=== PATIENT | male | born 1965 | race Caucasian/White ===

== ENCOUNTER 2018-11-13 16:00 | Emergency (ER) | payer OTHER ==
[2018-11-13 16:36] LABS: #Basophils 0.1 thou/uL (0.0-0.2); #Eosinphils 0.3 thou/uL (0.0-0.7); #Lymphocytes 1.9 thou/uL (1.20-3.40); #Monocytes 0.9 thou/uL (0.11-0.59); %Basophils 0.9 % (0.0-1.0); %Eosinophils 3.2 % (0.0-10.0); %Lymphocytes 20.4 % (21.0-51.0); %Monocytes 9.6 % (0.0-10.0); %Neutrophils 65.8 % (42.0-75.0); Hemoglobin 10.9 g/dL (14.0-18.0); Mean Corpuscular HGB CONC 31.7 g/dL (32.0-36.0); Mean Corpuscular Hemoglobin 27.6 pg (27.0-31.0); Mean Corpuscular Volume 87.2 fL (78.0-98.0); Mean Platelet Volume 7.8 fL (7.4-10.4); Platelet Count 276 thou/uL (130-400); RBC Distribution Width 13.8 % (11.5-14.5); Red Blood Cell (RBC) Count 3.96 mill/uL (4.70-6.10); White Blood Cell (WBC) Count 9.1 thou/uL (4.8-10.8)
[2018-11-13 16:43] LABS: INR-International Normal Ratio 2.9; Prothrombin Time 30.2 SEC (12.0-14.7)
[2018-11-13 16:44] LABS: PTT 47.9 SEC (22.9-36.1)
[2018-11-13] MEDS ORDERED: Morphine 4 MG/ML VIAL ONE (16:51)
[2018-11-13] MEDS ORDERED: hydrALAZINE 20 MG/ML VIAL ONE ×2 (16:52→20:09)
[2018-11-13] MEDS ORDERED: Ondansetron PF 4 MG/2 ML Vial ONE (16:52)
--- NOTE | 2018-11-13 17:00 | RAD ---
TWO VIEWS CHEST: Date: 11-13-18 Provided Clinical History: None. FINDINGS: No comparison. Heart size is upper limits of normal to mildly enlarged. Right subclavian cardiac paci ng device is noted with the tips overlying the expected locations of RA and RV. Prominence of pulmona ry vasculature. No focal consolidation, pleural fluid, or pneumothorax apparent. IMPRESSION: 1. Pulmonary vascular congestion. Correlate with concerns for congestive failure. POS: OFF
[2018-11-13 17:15] LABS: Albumin 2.8 g/dL (3.5-5.0)
[2018-11-13 17:16] LABS: Chloride 106 mmol/L (98-107); Potassium 3.5 mmol/L (3.5-5.1); Sodium 135 mmol/L (136-145)
[2018-11-13 17:17] LABS: Calcium 7.5 mg/dL (7.8-10.44); Globulin 2.3 g/dL (2.4-3.5); Glucose 143 mg/dL (70-105); Protein, Total 5.1 g/dL (6.0-8.3)
[2018-11-13 17:19] LABS: Anion Gap 11 mmol/L (10-20); Bilirubin, Total 0.2 mg/dL (0.2-1.2); Carbon Dioxide 22 mmol/L (22-29)
[2018-11-13 17:20] LABS: Alkaline Phosphatase 111 U/L (40-150); Calc. Creatinine Clearance 0 mL/min (70-130); Estimated GFR-MDRD 28
[2018-11-13 17:21] LABS: BUN (Urea Nitrogen) 32 mg/dL (8.4-25.7)
[2018-11-13 17:22] LABS: AST (SGOT) 15 U/L (5-34)
[2018-11-13 17:23] LABS: ALT (SGPT) 14 U/L (8-55); CK (CPK) 423 U/L (30-200); Lipase 34 U/L (8-78)
[2018-11-13 17:28] LABS: CKMB 14.8 ng/mL (0-6.6)
[2018-11-13] MEDS ORDERED: Furosemide 40 MG/4 ML VIAL ONE (18:16)
[2018-11-13 19:21] LABS: Bilirubin Negative (Negative); Blood, Urine Moderate (Negative); Clarity CLEAR (Clear); Glucose, Urine (Dipstick) 250 mg/dL (Negative); Leukocyte Small (Negative); Nitrite Negative (Negative); Protein, Urine (Dipstick) > or equal to 300 mg/dL (Neg-Trace); Specific Gravity, Urine 1.013 (1.002-1.036)
[2018-11-13 19:22] LABS: Bacteria/HPF None Seen HPF (None Seen); Hyaline Casts/LPF 0-3 HYALINE CAST LPF (0-3 Hyaline); Squamous Epithelial None Seen HPF (0-3)
[2018-11-13 19:24] LABS: Yeast-AUWi Flag 123.2 (0-25.0)
[2018-11-13 19:32] LABS: RBC/HPF 0-3 HPF (0-3); Yeast-All Forms None Seen HPF (None Seen)
[2018-11-13 22:20] LABS: Troponin I 0.214 ng/mL (< 0.028)
== END 2018-11-13 22:09 | disposition short-term general hospital (02) ==
LOC: ERS 16:00
DX: I13.0 Hypertensive heart and chronic kidney disease with heart failure and stage 1 through stage 4 chronic kidney disease, or unspecified chronic kidney disease (principal); I50.9 Heart failure, unspecified; N18.3 Chronic kidney disease, stage 3 (moderate); R79.89 Other specified abnormal findings of blood chemistry; I25.10 Atherosclerotic heart disease of native coronary artery without angina pectoris; I25.2 Old myocardial infarction; I48.91 Unspecified atrial fibrillation; K21.9 Gastro-esophageal reflux disease without esophagitis; F32.9 Major depressive disorder, single episode, unspecified; E11.22 Type 2 diabetes mellitus with diabetic chronic kidney disease; Z79.4 Long term (current) use of insulin; Z79.01 Long term (current) use of anticoagulants; Z79.891 Long term (current) use of opiate analgesic; Z79.899 Other long term (current) drug therapy
CPT/HCPCS: 36415; 71046; 80053; 81003; 81015; 82550; 82553; 83605; 83690; 83880; 84484; 85025; 85610; 85730; 93005; 94760; 96374; 96375; 96376; J0360; J1940; J2270; J2405

== ENCOUNTER 2019-01-20 10:21 | Inpatient (IN) | payer OTHER ==
[2019-01-20] MEDS ORDERED: Morphine 4 MG/ML VIAL ONE (10:58)
[2019-01-20 11:13] LABS: #Basophils 0.1 thou/uL (0.0-0.2); #Eosinphils 0.3 thou/uL (0.0-0.7); #Lymphocytes 2.1 thou/uL (1.20-3.40); #Monocytes 0.7 thou/uL (0.11-0.59); #Neutrophils 5.2 thou/uL (1.40-6.50); %Basophils 0.6 % (0.0-1.0); %Eosinophils 3.5 % (0.0-10.0); %Lymphocytes 24.6 % (21.0-51.0); %Monocytes 8.6 % (0.0-10.0); %Neutrophils 62.7 % (42.0-75.0); Hemoglobin 11.5 g/dL (14.0-18.0); Mean Corpuscular HGB CONC 32.4 g/dL (32.0-36.0); Mean Corpuscular Hemoglobin 27.1 pg (27.0-31.0); Mean Corpuscular Volume 83.7 fL (78.0-98.0); Mean Platelet Volume 8.3 fL (7.4-10.4); Platelet Count 259 thou/uL (130-400); RBC Distribution Width 14.2 % (11.5-14.5); Red Blood Cell (RBC) Count 4.24 mill/uL (4.70-6.10); White Blood Cell (WBC) Count 8.3 thou/uL (4.8-10.8)
[2019-01-20 11:27] LABS: ALT (SGPT) 13 U/L (8-55); AST (SGOT) 16 U/L (5-34); Albumin 2.9 g/dL (3.5-5.0); Alkaline Phosphatase 92 U/L (40-150); Anion Gap 15 mmol/L (10-20); BUN (Urea Nitrogen) 46 mg/dL (8.4-25.7); Bilirubin, Total 0.3 mg/dL (0.2-1.2); CK (CPK) 427 U/L (30-200); Calc. Creatinine Clearance 0 mL/min (70-130); Calcium 7.7 mg/dL (7.8-10.44); Carbon Dioxide 22 mmol/L (22-29); Chloride 101 mmol/L (98-107); Estimated GFR-MDRD 19; Glucose 124 mg/dL (70-105); Lipase 15 U/L (8-78); Protein, Total 5.9 g/dL (6.0-8.3); Sodium 135 mmol/L (136-145)
--- NOTE | 2019-01-20 11:28 | RAD ---
RADIOGRAPH CHEST 1 VIEW: DATE: 01/20/2019 HISTORY: 53-year-old male with acute chest pain FINDINGS: Generator 4 pacemaker obscures the right midlung zone. Dual pacemaker leads right subclavian path wit h lead tips overlying the expected locations of right atrial appendage and right ventricle. There are no airspace densities, pulmonary edema, pneumothorax, or cardiomegaly. The lateral costophrenic a ngles are sharp. IMPRESSION: 1. No acute cardiopulmonary findings. 2. Right-sided transvenous permanent pacemaker.
[2019-01-20 11:51] LABS: CKMB 14.6 ng/mL (0-6.6)
[2019-01-20] MEDS ORDERED: cloNIDine 0.1 MG TAB ONE (12:02)
[2019-01-20] MEDS ORDERED: ISOVUE-370 76%-LOCM 1 ML ONE (12:32)
[2019-01-20] MEDS ORDERED: Heparin 25,000 units/D5W 500 ML IV SCH (13:15)
[2019-01-20] MEDS ORDERED: Heparin 10,000 UNITS/ 10 ML VIAL SLOW IVP SCH (13:15)
[2019-01-20] MEDS ORDERED: hydrALAZINE 20 MG/ML VIAL ONE (13:18)
[2019-01-20 13:34] LABS: INR-International Normal Ratio 1.1; PTT 29.9 SEC (22.9-36.1); Prothrombin Time 14.2 SEC (12.0-14.7)
[2019-01-20] MEDS ORDERED: Heparin 25,000 units/D5W 0 ML ONE (13:51)
[2019-01-20] MEDS ORDERED: Ondansetron ODT 4 MG TAB SL PRN (14:57)
[2019-01-20] MEDS ORDERED: Ondansetron PF 4 MG/2 ML Vial IVP PRN ×2 (14:57→15:05)
[2019-01-20] MEDS ORDERED: Acetaminophen 325 MG TAB PO PRN ×2 (14:57→15:05)
[2019-01-20] MEDS ORDERED: HYDROcodone/Acetaminophen 5/325 mg Tablet PO PRN ×2 (14:57)
[2019-01-20] MEDS ORDERED: HumaLOG 300 UNITS/3 ML VIAL SC PRN (15:05)
[2019-01-20] MEDS ORDERED: Ondansetron ODT 4 MG TAB PO PRN (15:05)
[2019-01-20] MEDS ORDERED: Dextrose 5% in Water 1,000 ML IV PRN (15:05)
[2019-01-20] MEDS ORDERED: Labetalol HCl 100 MG/20 ML VIAL SLOW IVP PRN (15:05)
[2019-01-20] MEDS ORDERED: Dextrose 50% Abboject 50 ML SYRINGE SLOW IVP PRN (15:05)
[2019-01-20 15:27] LABS: Troponin I 0.161 ng/mL (< 0.028)
--- NOTE | 2019-01-20 16:40 | CT ---
Exam: Head CT without contrast HISTORY: Stroke alert. Unknown time of onset. Last seen normal this morning in the ED. Left-sided wea kness. Slurred speech. COMPARISON: none FINDINGS: Hemorrhage: No intraparenchymal hemorrhage or extra-axial hematoma. Brain parenchyma: Cortical lan-white matter differentiation is preserved. No mass effect or midline shift. Basilar cisterns are patent.There is malacic change involving the anterior right rodriguez radiata due to remote insult. There is malacic change involving the right caudate nucleus. Hypodensit ies in the right frontal subcortical white matter and along the midportion of the right centrum semiovale are likely due to chronic small vessel ischemic changes. Ventricular system: Ventricles and sulci are patent and symmetric. Calvarium: Intact. Sinuses and mastoid air cells: Adequate aeration. IMPRESSION: No acute intracranial process. Results of study discussed with Dr. Jimenez 01/20/2019 at 4:36 PM Code CR
[2019-01-20 17:11] LABS: INR-International Normal Ratio 1.1; Prothrombin Time 14.6 SEC (12.0-14.7)
[2019-01-20 17:12] LABS: PTT 61.1 SEC (22.9-36.1)
[2019-01-20 17:32] LABS: Troponin I 0.165 ng/mL (< 0.028)
--- NOTE | 2019-01-20 17:37 | CT ---
Exam: CT angiogram of the thoracic aorta CT angiogram of the abdominal aorta HISTORY: Chest pain. Weakness. Evaluate for dissection TECHNIQUE: CT angiogram of the thoracic and abdominal aorta performed in the axial plane. Three-dimen sional reformatted images are submitted FINDINGS: Chest CT: No mediastinal mass, lymphadenopathy or hematoma. There are nonspecific mediastinal lymph n odes. Heart size is upper normal. No significant pericardial fluid. Trachea and central bronchi are patent. Patchy groundglass opacities throughout the lung parenchyma. Dependent atelectatic changes. No significant pleural fluid. No pneumothorax .. Abdomen CT: Liver, spleen, pancreas have appropriate arterial phase enhancement. There is nodularity involving the left and right adrenal gland, incompletely evaluated. Surgically absent right kidney. Appropriate enhancement of the left kidney. Exophytic cyst emanating from the left renal cortex measuring 4.6 x 5.3 cm. Attenuation coefficient suggests a possibly complex lesion. Indeterminate characterization. No gastrohepatic, retrocrural or periportal lymphadenopathy No gastric mass, nephropathy, free air or free fluid. Limited evaluation of the alimentary canal by the lack of oral contrast. No evidence of bowel obstruc tion. CT ANGIOGRAM: The root of the aorta, ascending thoracic aorta, aortic arch, descending thoracic aorta and the entire abdominal aorta have a normal course and caliber. No aneurysm. No dissection. No periaortic fat stranding. Celiac artery origin, superior mesenteric artery origin, left renal artery and inferior mesenteric artery are patent. There does appear to be short segment severe stenosis involving the proximal inferior mesenteric artery. IMPRESSION: 1. No evidence of aneurysm or dissection 2. Nonspecific, nonenlarged mediastinal lymph nodes 3. Patchy groundglass opacities which may represent edema. 4. Indeterminate bilateral adrenal nodules line 5. Indeterminate right renal cyst emanating from the upper pole. Confirmation with nonemergent renal ultrasound. Results of study discussed with Dr. Jimenez 01/20/2019 at 5:36 PM CR Transcribed Date/Time: 01/20/2019 5:45 PM
--- NOTE | 2019-01-20 17:43 | CT ---
Exam: CT angiogram of the head CT angiogram of the neck Postcontrast head CT Postcontrast soft tissue neck CT HISTORY: Stroke. Weakness. TECHNIQUE: CT angiogram of the head and neck are performed in the axial plane. Three-dimensional refo rmatted images are submitted for dictation FINDINGS: Postcontrast head CT: No pathologic enhancement of the brain parenchyma. Chronic changes as noted on a recent noncontrast head CT involving the right cerebrum. Cortical lan-white matter differentiation is preserved Postcontrast soft tissue neck CT: Bilateral orbits are unremarkable. Aerodigestive tract is patent. M idline fatty raphae of the tongue is preserved Symmetric attenuation of the parotid and submandibular glands. Symmetric attenuation of cleidomastoid muscles No evidence of lymphadenopathy by size criteria. Central spinal canal is patent. Vertebral body height is maintained. There is no fracture. CT ANGIOGRAM: Right carotid: Right carotid artery origin, common carotid artery, carotid bifurcation and internal c arotid artery have appropriate enhancement and luminal diameter. Minimal atherosclerosis of the carotid bifurcation Left carotid: The left common carotid artery, carotid bifurcation and internal carotid artery of appr opriate enhancement and luminal diameter. Minimal sclerosis in the left carotid bifurcation Bilateral cervical vertebral arteries are patent. Bilateral subclavian arteries are patent. CT angiogram of the head: Distal cervical and intracranial internal carotid arteries have appropriate enhancement and luminal diameter. There is atherosclerosis involving bilateral cavernous and paraclinoid segments without evidence of high-grade stenosis. Anterior circulation: Symmetric enhancement and luminal diameter the A1 and M1 segments. Proximal A2 segment and proximal MCA branches of appropriate enhancement and luminal diameter. Posterior circulation: Bilateral vertebral arteries supply normal caliber basilar artery. Left PICA a rtery origin is unremarkable. Limited evaluation of the right PICA artery origin. Bilateral P1 segments have appropriate enhancement and luminal diameter. IMPRESSION: 1. No evidence of significant stenosis of either cervical carotid artery, based on NASCET criteria 2. No significant stenosis of the level of the [place] 3. Results of the study discussed with Dr. Jimenez 01/20/2019 at 5:42 PM Code CR Transcribed Date/Time: 01/20/2019 5:49 PM
--- NOTE | 2019-01-20 18:14 | PDOC.EVN ---
Event Note - Event Note Event Note: Called to see patient for code green. Patient had worsening weakness in the left upper, and lower extremity. he also noted some chest discomfort as well. A stat CT scan of the brain was done which was negative. There was concern for dissection due to his initial elevated blood pressure, above 200 systolic on admission, and the Neurological findings. The patient was informed about the risks for renal failure with the use of IV contrast. He agreed to the risk. A CTA of the neck, and CT dissection protocol, were negative. Will give IV fluids for contrast overnight. Will also consult Nephrology as well.
[2019-01-20] MEDS: Nitroglycerin 2% Ointment 1 INCH/1 GM Packet TOP SCH ×2 (18:46→22:20)
[2019-01-20] MEDS: Sodium Chloride 0.9% 1,000 ML IV SCH (18:46)
[2019-01-20] MEDS: hydrALAZINE 20 MG/ML VIAL SLOW IVP PRN (18:53)
--- NOTE | 2019-01-20 19:11 | CON ---
DATE OF CONSULTATION: 01/20/2019 HISTORY OF PRESENT ILLNESS: The patient is an unfortunate 53-year-old gentleman who presents with chest discomfort and has developed left-sided paralysis. The patient has a previous history of apparent coronary artery disease. He also suffered a cerebrovascular accident. The patient presented with left-sided chest discomfort. He states a few months ago, he underwent a cardiac catheterization. He was found to have apparently no evidence of progressive coronary artery disease. The patient presents once again with chest pain and elevated blood pressure. The patient while being here in the hospital suddenly developed acute paralysis of his left side. The patient continues to report the same continuous chest pain that began this morning. PAST MEDICAL HISTORY: Significant for; 1. Coronary artery disease. 2. Congestive heart failure. 3. Hypertension. 4. Chronic renal insufficiency. 5. He has a history of an electronic pacemaker placed. PAST SURGICAL HISTORY: He has had a kidney removed, back surgery, and knee surgery. SOCIAL HISTORY: Nonsmoker. FAMILY HISTORY: Positive family history of heart disease. ALLERGIES: NO KNOWN DRUG ALLERGIES. PHYSICAL EXAMINATION: GENERAL AND VITAL SIGNS: This is an ill-appearing gentleman in mild distress with a blood pressure of 162/75. NECK: Showed no jugular venous distention. LUNGS: Clear to auscultation. HEART: Regular rate and rhythm. Normal S1, S2. 1/6 systolic murmur. ABDOMEN: Distended. EXTREMITIES: Showed trace edema. NEUROLOGIC: The patient is unable to move his left upper and lower extremities. LABORATORY RESULTS: Sodium 135, potassium 3.0, chloride 101, bicarbonate 22, BUN was 46, and creatinine 3.37. His CPK was 427, MB was 14.6, and troponin 0.174. BNP is 1630. White blood cell count 4.3, hemoglobin 11.5, hematocrit 35.5, and platelets are 259. His EKG revealed a dual-chamber electronic pacemaker. IMPRESSION: 1. Acute cerebrovascular accident. 2. Chest pain, atypical with recent cardiac catheterization. 3. Cardiomyopathy. 4. Hypertension. 5. History of pacemaker placement. 6. Chronic renal insufficiency. PLAN: This gentleman presented with chest pain. He underwent an emergent CT scan which revealed no evidence of aortic dissection. He had been receiving heparin when he suddenly developed left-sided paralysis. The patient continues to report persistent chest discomfort. He apparently had no significant coronary artery disease several months ago. We will try to obtain these records. The patient's troponin levels have not been significantly elevated. It is unclear why his CPK-MB was elevated. From a Cardiac standpoint, with a recent CVA, the patient needs to be treated medically. We will follow this patient with you through his hospitalization. Job ID: [id number]
[2019-01-20] MEDS: Heparin 5,000 UNITS/ML VIAL SC SCH (22:20)
[2019-01-20] MEDS ORDERED: Morphine 4 MG/ML VIAL SLOW IVP PRN (22:36)
--- NOTE | 2019-01-20 23:01 | PRG ---
DATE OF SERVICE: REASON FOR CONSULTATION: Elevated creatinine. HISTORY OF PRESENT ILLNESS: This is a very pleasant 53-year-old gentleman presented to the hospital with left-sided paralysis. The patient has a history of coronary artery disease as well as a history of CKD. His prior creatinine was 2.3, which has increased to 3.3. The patient was admitted for stroke-like symptoms as well as hypertensive urgency. The patient can give no further history. PAST MEDICAL HISTORY: Significant for coronary artery disease, congestive heart failure, chronic kidney disease, and pacemaker. PAST SURGICAL HISTORY: Patient had kidney removed, back surgery, and knee surgery. SOCIAL HISTORY: No alcohol or drug use. FAMILY HISTORY: Negative for ESRD. REVIEW OF SYSTEMS: 15-point review of system was performed, negative, except for positives noted above. NECK: No swelling or lumps. NOSE: No epistaxis or discharge. EYES: No diplopia or pain. RESPIRATORY: CARDIOVASCULAR: GASTROINTESTINAL: /DISPUTE RESOLUTION SPECIALIST: MUSCULOSKELETAL: No joint pain. NEUROPSYCHIATIC SYSTEMS: No suicidal ideation. No ideation. SKIN: Denies any rash or ulcer. CONSTITUTIONAL: No fever or chills. PHYSICAL EXAMINATION: GENERAL: Patient is resting. VITAL SIGNS: Afebrile, pulse 67, breathing 16, and blood pressure 152/75. HEAD/NECK: Normocephalic. Atraumatic. EYES: EOMI. No deformity. EARS: Clear. No ulcers. NOSE: Intact. No lesions. MOUTH: Clear. No discharge. THROAT: Clear. No exudate. LUNGS: Clear. No crackles. CARDIAC: S1, S2. No rub. ABDOMEN: Benign. Bowel sounds positive. GENITALIA/RECTUM: Rene absent. BACK/EXTREMITIES: Edema 0+. NEUROLOGIC: Patient is resting. LABORATORY DATA: Labs reviewed. IMPRESSION: 1. Acute kidney injury, chronic kidney disease due to cardiorenal syndrome in the setting of unilateral kidney. No urgent indication for dialysis. 2. Anemia. Stable. 3. Hypertension. Management per primary team. 4. Cerebrovascular accident. Management per primary team. 5. Overall prognosis is poor. Job ID: [id number] [facility]
[2019-01-21 05:37] LABS: #Eosinphils 0.2 thou/uL (0.0-0.7); #Lymphocytes 1.2 thou/uL (1.20-3.40); #Monocytes 0.5 thou/uL (0.11-0.59); #Neutrophils 4.2 thou/uL (1.40-6.50); %Basophils 0.7 % (0.0-1.0); %Eosinophils 2.9 % (0.0-10.0); %Lymphocytes 20.2 % (21.0-51.0); %Monocytes 8.4 % (0.0-10.0); %Neutrophils 67.8 % (42.0-75.0); Hemoglobin 10.9 g/dL (14.0-18.0); Mean Corpuscular HGB CONC 32.1 g/dL (32.0-36.0); Mean Corpuscular Hemoglobin 27.5 pg (27.0-31.0); Mean Corpuscular Volume 85.5 fL (78.0-98.0); Mean Platelet Volume 8.4 fL (7.4-10.4); Platelet Count 238 thou/uL (130-400); RBC Distribution Width 14.1 % (11.5-14.5); Red Blood Cell (RBC) Count 3.97 mill/uL (4.70-6.10); White Blood Cell (WBC) Count 6.1 thou/uL (4.8-10.8)
[2019-01-21 06:03] LABS: Anion Gap 15 mmol/L (10-20); BUN (Urea Nitrogen) 44 mg/dL (8.4-25.7); Calc. Creatinine Clearance 34 mL/min (70-130); Carbon Dioxide 18 mmol/L (22-29); Cardiac Risk 3.4 (Less than 4.5); Chloride 104 mmol/L (98-107); Cholesterol 121 mg/dl (< 200 Desired); Estimated GFR-MDRD 20; Glucose 120 mg/dL (70-105); HDL Cholesterol 36 mg/dL (>60 Neg Risk); LDL Cholesterol, Calculated 64 mg/dL; Potassium 3.3 mmol/L (3.5-5.1); Sodium 134 mmol/L (136-145); Triglycerides 104 mg/dL (Less than 150)
[2019-01-21] MEDS: hydrALAZINE 20 MG/ML VIAL SLOW IVP PRN (08:39)
[2019-01-21] MEDS: Nitroglycerin 2% Ointment 1 INCH/1 GM Packet TOP SCH ×2 (08:40→15:49)
[2019-01-21] MEDS: Heparin 5,000 UNITS/ML VIAL SC SCH ×2 (08:40→22:24)
[2019-01-21] MEDS ORDERED: Aspirin 81 mg Enteric Coated Tablet PO SCH (09:00)
--- NOTE | 2019-01-21 09:14 | ULT ---
US Renal Bilateral STANDARD History: Acute kidney injury Comparison: CT prior day Findings: Real-time grayscale and color evaluation of the kidneys and urinary bladder was performed. Prior right nephrectomy. The left kidney measures 13.6 x 6.7 x 3.2 cm with a 5.1 cm simple cyst. No left renal mass or hydronephrosis. Urinary bladder volume is 400 mL. Impression: Large left renal cyst without evidence of obstructive uropathy.
[2019-01-21] MEDS: Aspirin 325 mg Enteric Coated Tablet PO SCH (10:15)
--- NOTE | 2019-01-21 12:23 | PRG ---
DATE OF SERVICE: 01/21/2019 SUBJECTIVE: This 53-year-old gentleman is being seen for acute kidney injury. The patient denied nausea, vomiting or chest pain. OBJECTIVE: CONSTITUTIONAL: The patient is awake and alert. VITAL SIGNS: Afebrile. Pulse 90, breathing 16, blood pressure 176/74. GENERAL APPEARANCE AND MENTAL STATUS: Fair. HEAD/NECK: Normocephalic. Atraumatic. EYES: EOMI. No deformity. EARS: Clear. No ulcers. NOSE: Intact. No lesions. MOUTH: Clear. No discharge. THROAT: Clear. No exudate. LUNGS: Clear. No crackles. CARDIAC: S1, S2. No rub. ABDOMEN: Benign. Bowel sounds positive. GENITALIA/RECTUM: Rene absent. BACK/EXTREMITIES: Edema 0+. NEUROLOGICAL: Alert and motor intact. SKIN: LYMPHATICS: LABS: Reviewed. ASSESSMENT AND PLAN: Stage 6 chronic kidney disease, stable. Hypertension, management per primary team. Anemia, stable, medication based on GFR appropriate. Unilateral kidney, stable, no indication for dialysis. The patient will follow up with the propulsion motor and generator repairer at the [facility]. Job ID: [id number]
--- NOTE | 2019-01-21 13:28 | PDOC.PN ---
- Subjective Encounter Start Date: 01/21/19 Encounter Start Time: 13:26 Mr. Chua was seen today in follow-up of chest pain and left sided weakness. He says he only has a" little bit" of pain today. He notes continued weakness on his left side, but says he is " working it out. - Objective Resuscitation Status - Order Detail: 01/20/19 13:57 Resuscitation Status Routine Resuscitation Status: FULL: Full Resuscitation MAR Reviewed: Yes Vital Signs & Weight: Vital Signs (12 hours) Temp Pulse Resp BP Pulse Ox 01/21/19 11:37 98 F 70 20 176/71 H 93 L 01/21/19 08:39 69 01/21/19 07:48 97.9 F 69 20 189/98 H 100 01/21/19 04:00 98.2 F 65 18 175/85 H 94 L Weight Weight 202 lb 4.8 oz I&O: 01/20/19 01/21/19 01/22/19 06:59 06:59 06:59 Output Total 300 200 Balance -300 -200 Result Diagrams: 01/21/19 05:15 01/21/19 05:15 Additional Labs: Accuchecks 01/21/19 01/21/19 01/20/19 11:25 06:16 20:47 POC Glucose 122 H 132 H 133 H 01/20/19 01/20/19 20:04 16:12 POC Glucose 136 H 128 H Phys Exam - Physical Examination HEENT: PERRLA Respiratory: no wheezing, no rales, no rhonchi, clear to auscultation bilateral Cardiovascular: RRR, no significant murmur, no rub Gastrointestinal: soft, non-tender, no distention, positive bowel sounds Musculoskeletal: no edema, pulses present + weakness on his left upper and lower extremity + mild dysarthria Dx/Plan (1) Acute coronary syndrome Code(s): I24.9 - ACUTE ISCHEMIC HEART DISEASE, UNSPECIFIED Status: Acute (2) Left-sided weakness Code(s): R53.1 - WEAKNESS Status: Chronic (3) CAD (coronary artery disease) Code(s): I25.10 - ATHSCL HEART DISEASE OF [place] CORONARY ARTERY W/O ANG PCTRS Status: Chronic (4) Hypertension Code(s): I10 - ESSENTIAL (PRIMARY) HYPERTENSION Status: Chronic (5) CKD (chronic kidney disease) stage 5, GFR less than 15 ml/min Code(s): N18.5 - CHRONIC KIDNEY DISEASE, STAGE 5 Status: Chronic (6) Diabetes mellitus type 2 in obese Code(s): E11.69 - TYPE 2 DIABETES MELLITUS WITH OTHER SPECIFIED COMPLICATION; E66.9 - OBESITY, UNSPECIFIED Status: Chronic - Plan * Chest pain- will continue medical management * Await further recommendation from Cardiology * Left sided weakness- ? CVA - will consult Neurology, CT scan was negative, as well as the CTA of the chest and neck * Carotid doppler can be canceled, and await Echo * HTN- blood pressure is a bit elevated- will re-start his home medications as well as PRN medication * DM- blood glucose is stable. * CKD stage 5- his renal function has remain stable- will continue to monitor
[2019-01-21] MEDS: Sodium Bicarbonate Tab 325 MG TAB PO SCH ×2 (15:50→22:23)
[2019-01-21] MEDS: hydrALAZINE 25 MG TAB PO SCH ×2 (15:50→22:23)
[2019-01-21] MEDS: Sodium Chloride 0.9% 1,000 ML IV SCH (17:10)
[2019-01-21] MEDS ORDERED: Atorvastatin Calcium 40 MG TAB PO SCH (21:00)
[2019-01-21] MEDS: Carvedilol 25 MG TAB PO SCH (22:24)
[2019-01-21] MEDS: NPH, Human Insulin Isophane 300 UNIT/3 ML VIAL SC SCH (22:25)
[2019-01-22] MEDS: Nitroglycerin 2% Ointment 1 INCH/1 GM Packet TOP SCH ×2 (00:45→09:40)
[2019-01-22] MEDS ORDERED: Aspirin Chewable 81 MG TAB PO SCH (09:00)
[2019-01-22 09:23] LABS: Anion Gap 13 mmol/L (10-20); BUN (Urea Nitrogen) 45 mg/dL (8.4-25.7); Calc. Creatinine Clearance 32 mL/min (70-130); Calcium 7.9 mg/dL (7.8-10.44); Carbon Dioxide 21 mmol/L (22-29); Chloride 104 mmol/L (98-107); Estimated GFR-MDRD 19; Glucose 114 mg/dL (70-105); Potassium 3.2 mmol/L (3.5-5.1); Sodium 135 mmol/L (136-145)
[2019-01-22] MEDS: NPH, Human Insulin Isophane 300 UNIT/3 ML VIAL SC SCH ×2 (09:34→20:48)
[2019-01-22] MEDS: Calcitriol 0.25 MCG CAP PO SCH (09:35)
[2019-01-22] MEDS: DULoxetine 30 MG CAP PO SCH (09:35)
[2019-01-22] MEDS: Heparin 5,000 UNITS/ML VIAL SC SCH ×2 (09:35→20:48)
[2019-01-22] MEDS: Sodium Bicarbonate Tab 325 MG TAB PO SCH ×3 (09:35→20:48)
[2019-01-22] MEDS: Carvedilol 25 MG TAB PO SCH ×2 (09:36→20:48)
[2019-01-22] MEDS: Aspirin 325 mg Enteric Coated Tablet PO SCH (09:36)
[2019-01-22] MEDS: hydrALAZINE 25 MG TAB PO SCH ×3 (09:42→20:47)
[2019-01-22] MEDS ORDERED: Carvedilol 25 MG TAB PO SCH ×3 (11:04→13:00)
[2019-01-22] MEDS: Morphine 4 MG/ML VIAL SLOW IVP PRN ×2 (11:27→22:05)
[2019-01-22] MEDS: HumaLOG 300 UNITS/3 ML VIAL SC PRN ×2 (11:28→17:36)
--- NOTE | 2019-01-22 12:07 | PRG ---
DATE OF SERVICE: SUBJECTIVE: Patient was seen and examined at bedside and overnight events noted. Patient denies any shortness of breath or chest pain or palpitation. No history of nausea or vomiting or diarrhea or fever or chills or cramps. OBJECTIVE: GENERAL: This is a well-built male, in no apparent distress. VITAL SIGNS: Temperature 97.5. Heart rate 73. Respiratory rate 16. Blood pressure 155/93. HEENT: Atraumatic, normocephalic. Oral mucosa is moist. NECK: Supple. CARDIOVASCULAR: S1, S2 heard. Rate and rhythm regular. RESPIRATORY: Clear to auscultation. GASTROINTESTINAL: Abdomen is soft. MUSCULOSKELETAL: No tenderness. No edema. DERMATOLOGIC: No skin rash. NEUROLOGIC: Alert and awake and oriented X3. No focal neurologic deficits. Moving all the extremities. PSYCHIATRIC: Mood and affect normal. LABORATORY DATA: Potassium is 3.2, BUN is 45, creatinine is 3.3. ASSESSMENT AND PLAN: 1. Chronic kidney disease, stage 4. Renal function seems to be stable. 2. Edema, controlled. 3. Hypertension. 4. Anemia. 5. Solitary kidney, needs close followup also with Nephrology as outpatient. 6. History of right nephrectomy. We will follow. Job ID: [id number]
[2019-01-22 13:12] VITALS: BMI 29.5
--- NOTE | 2019-01-22 15:20 | PDOC.PN ---
- Subjective Encounter Start Date: 01/22/19 Encounter Start Time: 15:18 Mr. Chua was seen today in follow-up of chest pain and left sided weakness. He says the weakness on his left side is improving. - Objective Resuscitation Status - Order Detail: 01/20/19 13:57 Resuscitation Status Routine Resuscitation Status: FULL: Full Resuscitation MAR Reviewed: Yes Vital Signs & Weight: Vital Signs (12 hours) Temp Pulse Resp BP BP Pulse Ox 01/22/19 14:48 62 139/74 01/22/19 11:41 97.8 F 61 16 156/87 H 93 L 01/22/19 09:42 85 158/80 H 01/22/19 08:00 92 L 01/22/19 07:42 97.5 F L 73 16 155/93 H 92 L 01/22/19 04:00 97.5 F L 62 16 125/65 93 L Weight Admit Weight 209 lb Weight 199 lb 12.8 oz I&O: 01/21/19 01/22/19 01/23/19 06:59 06:59 06:59 Intake Total 480 Output Total 300 200 300 Balance -300 280 -300 Result Diagrams: 01/21/19 05:15 01/22/19 08:54 Additional Labs: Accuchecks 01/22/19 01/22/19 01/21/19 10:29 05:43 20:24 POC Glucose 193 H 119 H 136 H 01/21/19 16:56 POC Glucose 112 H Phys Exam - Physical Examination HEENT: PERRLA Respiratory: no wheezing, no rales, no rhonchi, clear to auscultation bilateral Cardiovascular: RRR, no significant murmur, no rub Gastrointestinal: soft, non-tender, no distention, positive bowel sounds Musculoskeletal: no edema + left sided weakness much improved- he is lifting his left arm, and raising his left leg- it is only slightly weakner than that on the right Dx/Plan (1) Acute coronary syndrome Code(s): I24.9 - ACUTE ISCHEMIC HEART DISEASE, UNSPECIFIED Status: Acute (2) Left-sided weakness Code(s): R53.1 - WEAKNESS Status: Chronic (3) CAD (coronary artery disease) Code(s): I25.10 - ATHSCL HEART DISEASE OF [place] CORONARY ARTERY W/O ANG PCTRS Status: Chronic (4) Hypertension Code(s): I10 - ESSENTIAL (PRIMARY) HYPERTENSION Status: Chronic (5) CKD (chronic kidney disease) stage 5, GFR less than 15 ml/min Code(s): N18.5 - CHRONIC KIDNEY DISEASE, STAGE 5 Status: Chronic (6) Diabetes mellitus type 2 in obese Code(s): E11.69 - TYPE 2 DIABETES MELLITUS WITH OTHER SPECIFIED COMPLICATION; E66.9 - OBESITY, UNSPECIFIED Status: Chronic - Plan * Acute coronary syndrome- improving- medication adjustments per Cardiology noted- an increased dose of his Imdur, and Carvediolol * Left sided weakness- ? etiology- await Neurology evaluation * HTN- blood pressure is stable * DM- blood glucose is stable.
[2019-01-22] MEDS ORDERED: Atorvastatin Calcium 20 MG TAB PO SCH (21:00)
--- NOTE | 2019-01-23 09:05 | PDOC.PN ---
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 -: Denied chest pain. Left sided weakness persists but better. - Objective Resuscitation Status - Order Detail: 01/20/19 13:57 Resuscitation Status Routine Resuscitation Status: FULL: Full Resuscitation Vital Signs & Weight: Vital Signs (12 hours) Temp Pulse Resp BP Pulse Ox 01/23/19 08:00 97.3 F L 62 20 166/85 H 93 L 01/23/19 04:00 97.5 F L 65 16 131/69 95 01/23/19 00:00 97.6 F 62 16 124/66 94 L Weight Admit Weight 209 lb Weight 199 lb 11.2 oz I&O: 01/22/19 01/23/19 01/24/19 06:59 06:59 06:59 Intake Total 480 512 Output Total 200 540 225 Balance 280 -28 -225 Result Diagrams: 01/21/19 05:15 01/22/19 08:54 Additional Labs: Accuchecks 01/23/19 01/22/19 01/22/19 05:47 20:33 16:41 POC Glucose 138 H 161 H 163 H 01/22/19 10:29 POC Glucose 193 H Phys Exam - Physical Examination Constitutional: NAD obese HEENT: moist MMs Neck: no JVD, supple Respiratory: no wheezing, no rales, no rhonchi, clear to auscultation bilateral Cardiovascular: RRR Gastrointestinal: soft, non-tender, no distention, positive bowel sounds Musculoskeletal: pulses present No obvious edema or erythema appreciated awake and conversational. cranial nerves 2-12 are intact poer is 5/5 right limbs and 4-/5 left limbs Psychiatric: A&O x 3 Dx/Plan (1) Acute CVA (cerebrovascular accident) Code(s): I63.9 - CEREBRAL INFARCTION, UNSPECIFIED Status: Acute (2) Acute left hemiparesis Code(s): G81.94 - HEMIPLEGIA, UNSPECIFIED AFFECTING LEFT NONDOMINANT SIDE Status: Acute (3) Acute coronary syndrome Code(s): I24.9 - ACUTE ISCHEMIC HEART DISEASE, UNSPECIFIED Status: Acute (4) CAD (coronary artery disease) Code(s): I25.10 - ATHSCL HEART DISEASE OF [place] CORONARY ARTERY W/O ANG PCTRS Status: Chronic (5) Diabetes mellitus type 2 in obese Code(s): E11.69 - TYPE 2 DIABETES MELLITUS WITH OTHER SPECIFIED COMPLICATION; E66.9 - OBESITY, UNSPECIFIED Status: Chronic (6) Hypertension Code(s): I10 - ESSENTIAL (PRIMARY) HYPERTENSION Status: Chronic (7) CKD (chronic kidney disease) stage 4, GFR 15-29 ml/min Code(s): N18.4 - CHRONIC KIDNEY DISEASE, STAGE 4 (SEVERE) Status: Acute - Plan Continue supportive care. -: Get PY/OT and speech eval and treat. -: Awaiting repeat CT and Neurology ievaluation. -: Continue sliding scale insulin. -: Follow renal function * .
--- NOTE | 2019-01-23 10:23 | CT ---
HEAD CT NONCONTRAST: Date: 01/23/19 COMPARISON: 01/20/19. INDICATION: CVA, neurologic deficits. FINDINGS: There is redemonstration of remote cavitary lacunar infarction of the right basal ganglia extending i nto the anterior right coronal radiata. There is no acute intracranial hemorrhage or mass effect. Sta ble compensatory dilatation of the right lateral ventricle is seen at the frontal horn. No acute flui d level of the imaged paranasal sinuses. IMPRESSION: 1. No acute intracranial hemorrhage or mass effect. 2. Stable chronic findings. POS: [facility]
[2019-01-23 10:30] LABS: Albumin 2.8 g/dL (3.5-5.0); Anion Gap 14 mmol/L (10-20); BUN (Urea Nitrogen) 46 mg/dL (8.4-25.7); BUN/Creatinine Ratio 13.33; Calc. Creatinine Clearance 31 mL/min (70-130); Calcium 7.9 mg/dL (7.8-10.44); Carbon Dioxide 22 mmol/L (22-29); Chloride 103 mmol/L (98-107); Estimated GFR-MDRD 19; Glucose 185 mg/dL (70-105); Phosphorus 5.5 mg/dL (2.3-4.7); Potassium 3.5 mmol/L (3.5-5.1); Sodium 135 mmol/L (136-145)
[2019-01-23] MEDS: Sodium Bicarbonate Tab 325 MG TAB PO SCH ×3 (10:34→21:46)
[2019-01-23] MEDS: Calcitriol 0.25 MCG CAP PO SCH (10:35)
[2019-01-23] MEDS: Carvedilol 25 MG TAB PO SCH ×2 (10:35→21:45)
[2019-01-23] MEDS: DULoxetine 30 MG CAP PO SCH (10:36)
[2019-01-23] MEDS: Aspirin 325 mg Enteric Coated Tablet PO SCH (10:36)
[2019-01-23] MEDS: hydrALAZINE 25 MG TAB PO SCH ×3 (10:37→21:45)
[2019-01-23] MEDS: Heparin 5,000 UNITS/ML VIAL SC SCH ×2 (10:38→21:46)
[2019-01-23] MEDS: NPH, Human Insulin Isophane 300 UNIT/3 ML VIAL SC SCH ×2 (10:39→21:53)
[2019-01-23] MEDS: HumaLOG 300 UNITS/3 ML VIAL SC PRN ×2 (10:41→17:47)
--- NOTE | 2019-01-23 14:39 | PRG ---
DATE OF SERVICE: 01/23/2019 SUBJECTIVE: Patient was seen and examined at bedside and overnight events noted. Patient denies any shortness of breath or chest pain or palpitation. No history of nausea or vomiting or diarrhea or fever or chills or cramps. OBJECTIVE: GENERAL: This is a well-built male, in no acute distress. VITAL SIGNS: Temperature 97.4. Heart rate 64. Respiratory rate 19. Blood pressure 162/83. HEENT: Atraumatic, normocephalic. Oral mucosa is moist NECK: Supple. CARDIOVASCULAR: S1, S2 heard. Rate and rhythm regular. RESPIRATORY: Clear to auscultation. GASTROINTESTINAL: Abdomen is soft. MUSCULOSKELETAL: No tenderness. No edema. DERMATOLOGIC: No skin rash. NEUROLOGIC: Alert and awake and oriented X3. No focal neurologic deficits. Moving all the extremities. PSYCHIATRIC: Mood and affect normal. LABORATORY DATA: Potassium is 3.5, BUN is 46, and creatinine is 3.5. ASSESSMENT AND PLAN: 1. Acute kidney injury on chronic kidney disease, stage 4, stable. 2. Edema, controlled. 3. Hypertension, stable. 4. Anemia. 5. Solitary kidney. Labs are stable. Avoid nephrotoxins. We will follow. Job ID: [id number]
[2019-01-23] MEDS ORDERED: Atorvastatin Calcium 10 MG TAB PO SCH (21:00)
--- NOTE | 2019-01-23 22:51 | CON ---
DATE OF CONSULTATION: 01/23/2019 CONSULTING PHYSICIAN: Hospitalist Services. IMPRESSION: 1. Questionable acute stroke with embellishment. 2. The patient is already on maximum medical therapy. PLAN: 1. Continue current regimen of aspirin, Plavix, and a statin. 2. The patient can be discharged back to his unit. HISTORY OF PRESENT ILLNESS: Mr. Chua is a 53-year-old male with a known history of hypertension, end-stage renal disease, and hyperlipidemia, who presented with complaints of left-sided weakness and numbness. His exam has been a bit inconsistent since his admission to the Neuro unit. He had initial CT scan of the brain, which showed small-vessel ischemic changes. His echocardiogram showed an ejection fraction of 50% to 55%. He got an elevated BUN and creatinine. I did a followup CT today which failed to reveal any new ischemic changes. PAST MEDICAL HISTORY: As listed above. ALLERGIES: NONE. SOCIAL HISTORY: No tobacco use. He is currently an inmate. MEDICATIONS: Medication list was reviewed. REVIEW OF SYSTEMS: 10 system review of systems is otherwise unremarkable. PHYSICAL EXAMINATION: GENERAL: He is a well-nourished, middle-aged man, in no acute distress. VITAL SIGNS: Have been stable. He is afebrile. HEENT: Pupils are equal and reactive. Conjunctivae are clear. Oropharynx is clear. Poor dentition. NECK: Supple. No lymphadenopathy. EXTREMITIES: No cyanosis or edema. NEUROLOGIC: Alert and cooperative. His speech is fluent and clear. He follows commands appropriately. Cranial nerves 2 through 12 are intact. Motor exam showed good antigravity strength bilaterally. Rapid alternating movements are symmetric. 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 He has antigravity strength in both legs. Gait is not tested. No abnormal movements are seen. SUMMARY: A middle-aged male with multiple medical issues, who presented with some subjective weakness and numbness. Nothing visible is present on CAT scan. We will just continue his current treatment given that it is maximum medical therapy. Job ID: [id number]
[2019-01-24 05:56] LABS: Albumin 2.6 g/dL (3.5-5.0); Anion Gap 11 mmol/L (10-20); BUN (Urea Nitrogen) 45 mg/dL (8.4-25.7); BUN/Creatinine Ratio 13.43; Calc. Creatinine Clearance 32 mL/min (70-130); Calcium 7.9 mg/dL (7.8-10.44); Carbon Dioxide 23 mmol/L (22-29); Chloride 105 mmol/L (98-107); Estimated GFR-MDRD 19; Glucose 110 mg/dL (70-105); Phosphorus 5.2 mg/dL (2.3-4.7); Potassium 3.3 mmol/L (3.5-5.1); Sodium 136 mmol/L (136-145)
[2019-01-24] MEDS: Sodium Bicarbonate Tab 325 MG TAB PO SCH (08:43)
[2019-01-24] MEDS: Carvedilol 25 MG TAB PO SCH (08:43)
[2019-01-24] MEDS: DULoxetine 30 MG CAP PO SCH (08:44)
[2019-01-24] MEDS: hydrALAZINE 25 MG TAB PO SCH (08:44)
[2019-01-24] MEDS: Calcitriol 0.25 MCG CAP PO SCH (08:45)
[2019-01-24] MEDS: Heparin 5,000 UNITS/ML VIAL SC SCH (08:45)
[2019-01-24] MEDS: NPH, Human Insulin Isophane 300 UNIT/3 ML VIAL SC SCH (08:46)
[2019-01-24] MEDS: Aspirin 325 mg Enteric Coated Tablet PO SCH (08:52)
[2019-01-24] MEDS ORDERED: Potassium Chloride 20 MEQ TAB PO SCH (09:15)
--- NOTE | 2019-01-24 10:45 | DIS ---
DATE OF ADMISSION: 01/20/2019 DATE OF DISCHARGE: 01/24/2019 PRIMARY CARE PHYSICIAN: [facility]. DISCHARGE DIAGNOSES: 1. Presumed acute cerebrovascular accident. 2. Atypical chest pain. 3. Demand ischemia of the myocardium. 4. Acute left hemiparesis. 5. Acute coronary syndrome. 6. Coronary artery disease status post recent negative cardiac angio. 7. Type 2 diabetes mellitus. 8. Obesity. 9. Uncontrolled hypertension. 10. Chronic kidney disease stage 4. 11. Hypokalemia. CONSULTS: 1. Neurology. 2. Cardiology. HOSPITAL COURSE: The patient is a 53-year-old male with known history of coronary artery disease with negative recent coronary angiogram, hypertension, CKD stage 4, and bradycardia, status post pacemaker placement, as well as diabetes. The patient was brought in from the residential due to persistent chest pain. He was found to have mild troponin elevation. However, while in the ER, the patient developed acute onset of left-sided hemiparesis, necessitating activation of code stroke. The patient was evaluated with CT scan of the brain as well as a CTA head and neck, which; however, were unremarkable with no evidence of acute pathology. The patient was seen by Cardiology and neurologist and conservative management and optimization of medical management was recommended. Repeat CT scan of the brain three days later also was negative for acute infarct. There was some concern about embellishment by the patient given his situation. Neurology recommended continuation of aspirin and Plavix, though aspirin was increased to full dose, while drop machine operator recommended continuation of the optimized medical management. The patient also was seen by PT and OT as well as Speech Therapy. Continuation of restorative therapy was recommended. The patient remained stable and was subsequently discharged back to the residential. PHYSICAL EXAMINATION: VITAL SIGNS: Temperature 98.1, pulse 63, respiratory rate 14, SpO2 of 95% on room air, and blood pressure 152/75. GENERAL: Obese male, in no obvious distress. Afebrile. Anicteric. Acyanotic. HEENT: Normocephalic and atraumatic. Pupils are reacting to light. Oral mucosa is moist. NECK: Supple and nontender with full range of motion. CARDIOVASCULAR: Regular rhythm and rate with normal heart sounds one and two. RESPIRATORY: Good air entry bilateral with few transmitted sounds. No obvious crackle or rhonchi or use of accessory muscles was appreciated. GI: Full, soft, nontender, and nondistended with normal bowel sounds. EXTREMITIES: Grossly normal looking atraumatic with no obvious edema or erythema. Distal pulses are palpable. NEUROLOGIC: Conscious, alert, and oriented x3 with appropriate mental status. Cranial nerves 2 through 12 are intact. Speech is normal. Power is 5/5 on the right limbs and 4/5 on the left limbs. Of note; however, there was no drift. The patient; however, was noted to have a gait instability by PT. DISCHARGE DISPOSITION: [facility]. DISCHARGE CONDITION: Improved. DISCHARGE MEDICATIONS: 1. Albuterol HFA 2 puffs inhalation q.6 p.r.n. 2. Lipitor 80 mg p.o. daily at bedtime. 3. Bumex 4 mg p.o. b.i.d. 4. Calcitriol 0.25 daily. 5. Carvedilol 25 mg p.o. b.i.d. 6. Plavix 75 mg p.o. daily. 7. Cymbalta 30 mg p.o. daily. 8. Ferrous sulfate 325 mg p.o. daily. 9. Insulin NPH 10 units subcu b.i.d. 10. Regular insulin 9 units plus sliding scale t.i.d. 11. Nitroglycerin 0.4 tablets sublingual p.r.n. for chest pain. 12. Omeprazole 20 mg p.o. daily. 13. Sodium bicarbonate 650 mg t.i.d. 14. Triamcinolone cream one application topical b.i.d. 15. Aspirin 325 mg p.o. daily. 16. Hydralazine 50 mg p.o. t.i.d. 17. Isosorbide mononitrate 180 mg p.o. daily. FOLLOWUP: The patient is to follow up at the [facility] in the residential. He is also to be followed by the regular sample maker original. TIME SPENT: This discharge took more than 39 minutes. Job ID: [id number]
[2019-01-24 11:56] VITALS: BP 177/90; TEMP 97.6
--- NOTE | 2019-01-24 12:22 | PRG ---
DATE OF SERVICE: 01/24/2019 SUBJECTIVE: Patient was seen and examined at bedside and overnight events noted. Patient denies any shortness of breath or chest pain or palpitation. No history of nausea or vomiting or diarrhea or fever or chills or cramps. OBJECTIVE: GENERAL: This is a well-built male, in no acute distress. VITAL SIGNS: Temperature 98.1. Heart rate 62. Respiratory rate 14. Blood pressure 152/75. HEENT: Atraumatic, normocephalic. Oral mucosa is moist NECK: Supple. CARDIOVASCULAR: S1, S2 heard. Rate and rhythm regular. RESPIRATORY: Clear to auscultation. GASTROINTESTINAL: Abdomen is soft. MUSCULOSKELETAL: No tenderness. No edema. DERMATOLOGIC: No skin rash. NEUROLOGIC: Alert and awake and oriented X3. No focal neurologic deficits. Moving all the extremities. PSYCHIATRIC: Mood and affect normal. LABORATORY DATA: Potassium is 3.3, BUN is 45, and creatinine is 3.3. ASSESSMENT AND PLAN: 1. Acute kidney injury on chronic kidney disease, stage 4, stable. 2. Edema, controlled. 3. Hypertension. 4. Anemia. 5. Solitary kidney. Labs are stable. 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 Job ID: [id number]
[2019-01-24] MEDS: HumaLOG 300 UNITS/3 ML VIAL SC PRN (13:15)
== END 2019-01-24 14:08 | DRG 65 ==
LOC: ERS 10:21 → EEVIPCON 13:00 → 2NO 13:00 → 2SE 20:51
PROVIDERS: ADMIT Internal Medicine; ATTEND Internal Medicine
DX: I63.9 Cerebral infarction, unspecified (principal); I24.9 Acute ischemic heart disease, unspecified; I42.9 Cardiomyopathy, unspecified; G81.94 Hemiplegia, unspecified affecting left nondominant side; I24.8 Other forms of acute ischemic heart disease; N18.4 Chronic kidney disease, stage 4 (severe); I13.0 Hypertensive heart and chronic kidney disease with heart failure and stage 1 through stage 4 chronic kidney disease, or unspecified chronic kidney disease; I25.10 Atherosclerotic heart disease of native coronary artery without angina pectoris; I50.9 Heart failure, unspecified; D64.9 Anemia, unspecified; E11.22 Type 2 diabetes mellitus with diabetic chronic kidney disease; E78.5 Hyperlipidemia, unspecified; E66.9 Obesity, unspecified; E87.6 Hypokalemia; Z90.5 Acquired absence of kidney; Z95.0 Presence of cardiac pacemaker; Z68.29 Body mass index [BMI] 29.0-29.9, adult
CPT/HCPCS: 36415; 36416; 70450; 70496; 70498; 71045; 71275; 76770; 80048; 80053; 80061; 80069; 82550; 82553; 83690; 83880; 84484; 85025; 85610; 85730; 93005; 93010; 93306; 93798; 96365; 96375; 96376; J0360; J1644; J1815; J2270; Q9966